=== PATIENT | female | born 1950 | race Caucasian/White ===

== ENCOUNTER 2021-12-21 18:33 | Emergency (ER) | payer OTHER ==
[~2021-12-21] VITALS: Ht 152.4 cm; Wt 64.9 kg
[2021-12-21] MEDS ORDERED: AZOR 10-20 MG1 EACH (19:34)
[2021-12-22] MEDS ORDERED: KETO10TA2 PO (00:05)
== END 2021-12-22 00:40 ==
LOC: ER 18:33
DX: S52.122A Displaced fracture of head of left radius, initial encounter for closed fracture (principal); S01.81XA Laceration without foreign body of other part of head, initial encounter; S05.12XA Contusion of eyeball and orbital tissues, left eye, initial encounter; S40.012A Contusion of left shoulder, initial encounter; W18.39XA Other fall on same level, initial encounter; Y93.9 Activity, unspecified; Y92.9 Unspecified place or not applicable; Y99.9 Unspecified external cause status; I10 Essential (primary) hypertension

== ENCOUNTER 2021-12-29 12:57 | Emergency (ER) | payer OTHER ==
[~2021-12-29] VITALS: Ht 152.4 cm; Wt 65.3 kg
[~2021-12-29 12:57] MED LIST: AZOR 10-20 MG1 EACH; KETO10TA2 PO
== END 2021-12-29 15:24 | disposition home or self-care (01) ==
LOC: ER 12:57
DX: Z48.02 Encounter for removal of sutures (principal)